=== PATIENT | female | born 1985 | race African-American/Black ===

== ENCOUNTER 2017-09-15 18:39 | Emergency (ER) | payer OTHER ==
[~2017-09-15] VITALS: Ht 167.6 cm; Wt 108.9 kg
[2017-09-15 18:51] VITALS: BP 127/76
--- NOTE | 2017-09-15 19:53 | Emergency Room Report ---
History of Present Illness General Chief Complaint: Skin Rash/Abscess Source: Patient Present Illness HPI 32-year-old female presents to the emergency department complaining of acute onset of swelling and tenderness 7/10 in severity and after the right axilla 2 days. Patient reports she has been having ongoing issues in the bilateral axilla for several months. Patient states that and self incising lesions which have temporarily resolve the problem however she feels that after 2 weeks they return. She denies fevers, chills, the molar symptoms and other parts of the body. She denies ever receiving official diagnoses she states that she did follow up with her PCP at one point who stated that she may possibly require a month long treatment of antibiotics and the patient did not think that her PCP was right in duration of antibiotic treatment. Nonetheless patient states that she has not taken a month worth of treatment she said in the past she has had a one-week treatment which did help however she states symptoms never quite resolved completely and she always has palpable masses in the axilla. Patient states at home she stop shaving as she thought that initially this was caused by that. Patient states that despite her efforts she continues to have symptoms. Allergies: Coded Allergies: No Known Allergies (Unverified , 09/15/17) Patient History Past Medical History: see triage record Past Surgical History: none Pertinent Family History: none Now: No Reviewed Nursing Documentation: PMH: Agreed; PSxH: Agreed Nursing Documentation-PMH Past Medical History: No Stated History Review of Systems All Other Systems: negative except mentioned in HPI Physical Exam Vital Signs Date Time Temp Pulse Resp B/P (MAP) Pulse Ox O2 Delivery O2 Flow Rate FiO2 09/15/17 18:45 98.2 107 20 127/76 99 Room Air 98.2 Sp02 EP Interpretation: reviewed, normal General Appearance: no apparent distress, alert, GCS 15, non-toxic Head: normocephalic, atraumatic Eyes: bilateral eye normal inspection ENT: hearing grossly normal, normal voice Neck: full range of motion Respiratory: chest non-tender, lungs clear, normal breath sounds, no rhonchi, no wheezing, speaking full sentences Cardiovascular #1: regular rate, rhythm Musculoskeletal: back normal, gait/station normal, normal range of motion, tender - right axilla. localized. nobony ttp. Neurologic: alert, oriented x3, responsive, motor strength/tone normal, sensory intact, normal gait, speech normal, grossly normal Psychiatric: judgement/insight normal Skin: normal color, no rash, warm/dry, well hydrated, other - two discrete palpable tender lesions in the right axilla, each 1cm or less, no palpable fluctuance at this time. mild erythema noted, no significant increased temperature to palpation. Medical Decision Making PA Attestation Dr. Kaplan is my supervising Physician whom patient management has been discussed with. Diagnostic Impression: Primary Impression: Hidradenitis suppurativa of right axilla ER Course 32-year-old female presents to the emergency department complaining of acute onset of swelling and tenderness 7/10 in severity and after the right axilla 2 days. Patient reports she has been having ongoing issues in the bilateral axilla for several months. Patient states that and self incising lesions which have temporarily resolve the problem however she feels that after 2 weeks they return. She denies fevers, chills, the molar symptoms and other parts of the body. She denies ever receiving official diagnoses she states that she did follow up with her PCP at one point who stated that she may possibly require a month long treatment of antibiotics and the patient did not think that her PCP was right in duration of antibiotic treatment. Nonetheless patient states that she has not taken a month worth of treatment she said in the past she has had a one-week treatment which did help however she states symptoms never quite resolved completely and she always has palpable masses in the axilla. Patient states at home she stop shaving as she thought that initially this was caused by that. Patient states that despite her efforts she continues to have symptoms. Pt. reports that she decided to come when she noticed symptoms beginning in hope to decrease extent of exacerbation from previous ones . Ddx considered but are not limited to cellulitis, hydradenitis Suppurativa, fracture, d/L, gout, abscess Vital signs: are WNL, pt. is afebrile H&PE are most consistent with axillary hidradenitis. - two discrete palpable tender lesions in the right axilla, each 1cm or less, no palpable fluctuance at this time. mild erythema noted, no significant increased temperature to palpation. ORDERS:none required at this time. ED INTERVENTIONS: None required at this time. DISPOSITION: at this time pt. will be admitted to Dr. Gillis on behalf of Dr. Pineda for hydradenitis Suppurativa. Dr. Bahena agreed to admit the pt. and to continue pt. care management. Last Vital Signs Date Time Temp Pulse Resp B/P (MAP) Pulse Ox O2 Delivery O2 Flow Rate FiO2 09/15/17 18:51 98.2 107 20 127/76 99 Room Air 98.2 Disposition: HOME, SELF-CARE Condition: Stable Scripts Lidocaine HCL 2% Jelly* (Lidocaine Jelly 2%*) 5 Ml Jel.pf.cosmo 1 APPLIC TOPIC QID, #5 ML Prov: Ritika Batista 09/15/17 Doxycycline Hyclate* (VIBRAMYCIN*) 100 Mg Capsule 100 MG ORAL EVERY 12 HOURS for 10 Days, #20 CAP 0 Refills Prov: Ritika Batista 09/15/17 Referrals: CARLITOS AVILEZ,REFERRING (PCP) Patient Instructions: Hidradenitis Suppurativa Additional Instructions: Take medications as directed. Follow up with a Primary Care Provider in 3-5 days, even if your symptoms have resolved. --Please review list of primary care clinics, if you do not already have a primary care provider Return sooner to ED if new symptoms occur, or current symptoms become worse. - Please note that this Emergency Department Report was dictated using [employer] sales manager technology software, occasionally this can lead to erroneous entry secondary to interpretation by the dictation equipment. Ritika Batista September 15, 2017 19:53
[2017-09-15] MEDS ORDERED: VIBRAMYCIN100 MG ORAL (19:57)
[2017-09-15] MEDS ORDERED: LD2JL30 TOPIC (19:57)
[2017-09-15 20:05] VITALS: BP 0/0
== END 2017-09-15 20:05 | disposition home or self-care (01) ==
LOC: EMR 19:29
DX: L73.2 Hidradenitis suppurativa (principal)
CPT/HCPCS: 99284